=== PATIENT | female | born 1965 | race Caucasian/White ===

== ENCOUNTER → 2018-03-20 | Day surgery (SDC) | payer OTHER ==
[~2018-03-20] MED LIST: LIDOCAINE 1% INJ-PF (10 MG/ML) 30 ML SDV ONE
--- NOTE | 2018-03-21 16:57 | WOMENS IMAGING REPORT ---
EXAM DESCRIPTION: U/S BREAST BX; LEFT DIG DX MAMMO NO CHG; U/S BREAST BX EACH ADDT'L COMPLETED DATE/TIME: 03/20/2018 2:44 pm; 03/20/2018 2:52 pm REASON FOR STUDY: U/S GUIDED CNBX/N63.0; N63.0 S/P US BX LEFT BREAST FOR CLIP PLACEMENT; N63.0 TWO N ODULES LEFT BREAST N63.0 UNSPECIFIED LUMP IN UNSPECIFIED BREAST COMPARISON: None. TECHNIQUE: The procedure was discussed with the patient and the patient agreed to proceed. THERE ARE TWO NODULES OF CONCERN AT THE 1 TO 2 O'CLOCK POSITION, A 9 X 7.5 MM NODULE SLIGHTLY MORE ME DIAL, A 7 X 7 MM SLIGHTLY MORE LATERAL. BOTH OF THESE NODULES WERE SAMPLED TODAY. Left breast 1 to 2 o'clock position 9 x 7.5 mm nodule with V clip The patient was scanned and the area of interest in the 1 to 2 o'clock position 10 cm from the nippl e of the left breast was localized. This correlates with the area of concern on prior imaging studie s. This area was targeted for ultrasound-guided core biopsy. After sterile skin prep and 1.5 mL local lidocaine 1% for skin and deep tissue anesthesia, a 14 gauge coaxial core biopsy needle was used to obtain several cores of tissue from the lesion. Under ultras ound guidance, a V clip was placed in the areas sampled. There were no immediate post-procedure comp lications. Left breast 1 to 2 o'clock position 7 x 7 mm nodule with ribbon clip The patient was scanned and the area of interest in the 1 to 2 o'clock position 10 cm from the nipple of the left breast was localized. This correlates with the area of concern on prior imaging studies . This area was targeted for ultrasound-guided core biopsy. After sterile skin prep and 1.5 mL local lidocaine 1% for skin and deep tissue anesthesia, a 14 gauge coaxial core biopsy needle was used to obtain several cores of tissue from the lesion. Under ultras ound guidance, a ribbon clip was placed in the areas sampled. There were no immediate post-procedure complications. MAMMOGRAM: Post-procedure two view mammogram was acquired in the digital mammogram suite. The clips w ere in the expected location. No significant hematoma. Pathology yields a diagnosis of invasive ductal carcinoma in both locations Pathology is concordant. LIMITATIONS: None. FINDINGS: Ultrasound guided breast biopsy as described above. POST PROCEDURE MAMMOGRAMS FOR MARKER PLACEMENT: Yes IMPRESSION: ULTRASOUND-GUIDED CORE BIOPSY OF THE LEFT BREAST YIELDS A DIAGNOSIS OF INVASIVE DUCTAL C ARCINOMA AT BOTH NODULES AT THE 1 TO 2 O'CLOCK POSITION. BI-RADS 6 Known biopsy-proven malignancy. Appropriate action should be taken. COMMENT: COMMUNICATION: REPORT CALLED TO DR. FERNANDA GOMEZ'S NURSE, 1000 hours 03/21/2018. Results o f the biopsy were also discussed with the patient directly, 1000 hours 03/21/2018. The patient unders tands this is a malignant diagnosis Patient medication list reviewed: Yes- Quality ID# [id number]:Eligible professional attests to documenting i n the medical record they obtained, updated, or reviewed the patient's current medications. TECHNICAL DOCUMENTATION: JOB ID: [id number] [employer]- All Rights Reserved Reading location - IP/workstation name: [email or web address]
== END ==
LOC: EDSTATUS → WI 12:49
PROVIDERS: ATTEND Surgery
DX: C50.912 Malignant neoplasm of unspecified site of left female breast (principal); Z17.0 Estrogen receptor positive status [ER+]
CPT/HCPCS: 88305 ×2; 88342; 19083; 19084; J3490

== ENCOUNTER → 2018-03-28 | Outpatient (CLI) | payer OTHER ==
[2018-03-28 08:24] LABS: ABSOLUTE EOSINOPHILS # (AUTO) 0.2 10^3/uL (0.0-0.6); ABSOLUTE LYMPHOCYTES (AUTO) 1.1 10^3/uL (0.5-4.7); ABSOLUTE MONOCYTES (AUTO) 0.4 10^3/uL (0.1-1.4); ABSOLUTE NEUT (AUTO) 4.1 10^3/uL (1.7-8.2); BASOPHILS % (AUTO) 0.7 % (0-2); EOSINOPHILS % (AUTO) 3.1 % (0-6); HEMATOCRIT 42.4 % (36.0-47.0); HEMOGLOBIN 14.5 g/dL (12.0-15.5); LYMPHOCYTES % (AUTO) 19.2 % (13-45); MEAN CORPUSCULAR HEMOGLOBIN 29.1 pg (27.0-33.4); MEAN CORPUSCULAR HGB CONC 34.3 g/dL (32.0-36.0); MEAN CORPUSCULAR VOLUME 85 fl (80-97); MONOCYTES % (AUTO) 6.3 % (3-13); PLATELET COUNT 326 10^3/uL (150-450); RED BLOOD COUNT 4.99 10^6/uL (3.72-5.28); RED CELL DISTRIBUTION WIDTH 12.8 % (11.5-14.0); SEGMENTED NEUTROPHILS % (AUTO) 70.7 % (42-78); TOTAL CELLS COUNTED % (AUTO) 100 %; WHITE BLOOD COUNT 5.8 10^3/uL (4.0-10.5)
--- NOTE | 2018-03-28 08:36 | RADIOLOGY REPORT (SQ) ---
EXAM DESCRIPTION: CHEST PA/LATERAL COMPLETED DATE/TIME: 03/28/2018 7:52 am REASON FOR STUDY: MALIGNANT NEOPLASM OF UNSPECIFIED SITE OF LEFT FEMALE BREAST COMPARISON: None. EXAM PARAMETERS: NUMBER OF VIEWS: two views TECHNIQUE: Digital Frontal and Lateral radiographic views of the chest acquired. RADIATION DOSE: NA LIMITATIONS: none FINDINGS: LUNGS AND PLEURA: No opacities, masses or pneumothorax. No pleural effusion. MEDIASTINUM AND HILAR STRUCTURES: No masses or contour abnormalities. HEART AND VASCULAR STRUCTURES: Heart normal size. No evidence for failure. BONES: No acute findings. HARDWARE: None in the chest. OTHER: No other significant finding. IMPRESSION: NO SIGNIFICANT RADIOGRAPHIC FINDING IN THE CHEST. TECHNICAL DOCUMENTATION: JOB ID: [id number] [employer]- All Rights Reserved Reading location - IP/workstation name: [email or web address]
[2018-03-28 08:46] LABS: ALANINE AMINOTRANSFERASE 28 U/L (9-52); ALBUMIN 4.5 g/dL (3.5-5.0); ALKALINE PHOSPHATASE 56 U/L (38-126); ANION GAP 13 (5-19); ASPARTATE AMINO TRANSFERASE 25 U/L (14-36); BILIRUBIN,DIRECT 0.3 mg/dL (0.0-0.4); BILIRUBIN,TOTAL 0.5 mg/dL (0.2-1.3); BLOOD UREA NITROGEN 17 mg/dL (7-20); CALCIUM 9.7 mg/dL (8.4-10.2); CARBON DIOXIDE 27 mmol/L (22-30); CHLORIDE 106 mmol/L (98-107); GLUCOSE 98 mg/dL (75-110); POTASSIUM 4.2 mmol/L (3.6-5.0); SODIUM 145.5 mmol/L (137-145); TOTAL PROTEIN 7.9 g/dL (6.3-8.2)
== END ==
LOC: OD 07:28
PROVIDERS: ATTEND Surgery
DX: C50.912 Malignant neoplasm of unspecified site of left female breast (principal)
CPT/HCPCS: 36415; 71046; 80053; 85025

== ENCOUNTER 2018-05-11 08:50 | Day surgery (SDC) | payer OTHER ==
[2018-05-04 10:15] LABS: HEMATOCRIT 40.9 % (36.0-47.0); HEMOGLOBIN 14.1 g/dL (12.0-15.5); MEAN CORPUSCULAR HEMOGLOBIN 29.5 pg (27.0-33.4); MEAN CORPUSCULAR HGB CONC 34.6 g/dL (32.0-36.0); MEAN CORPUSCULAR VOLUME 85 fl (80-97); PLATELET COUNT 328 10^3/uL (150-450); RED CELL DISTRIBUTION WIDTH 13.6 % (11.5-14.0); WHITE BLOOD COUNT 6.6 10^3/uL (4.0-10.5)
[2018-05-04 10:27] LABS: ALANINE AMINOTRANSFERASE 46 U/L (9-52); ALBUMIN 4.6 g/dL (3.5-5.0); ALKALINE PHOSPHATASE 66 U/L (38-126); ANION GAP 14 (5-19); ASPARTATE AMINO TRANSFERASE 37 U/L (14-36); BILIRUBIN,DIRECT 0.2 mg/dL (0.0-0.4); BILIRUBIN,TOTAL 0.7 mg/dL (0.2-1.3); BLOOD UREA NITROGEN 19 mg/dL (7-20); CALCIUM 10.3 mg/dL (8.4-10.2); CARBON DIOXIDE 24 mmol/L (22-30); CHLORIDE 105 mmol/L (98-107); GLUCOSE 100 mg/dL (75-110); POTASSIUM 4.4 mmol/L (3.6-5.0); SODIUM 142.9 mmol/L (137-145); TOTAL PROTEIN 7.9 g/dL (6.3-8.2)
--- NOTE | 2018-05-08 13:21 | EKG REPORT ---
SEVERITY:- NORMAL ECG - SINUS RHYTHM : Confirmed by: Tico Harrell MD 08-May-2018 13:20:04
[~2018-05-11 08:50] MED LIST changes: +DEXAMETHASONE SOD PHOSPHATE INJ 4 MG/1 ML VIAL ONE; +LACTATED RINGERS 1000 ML IV PRN; +LIDOCAINE 0.5% INJ-PF (5 MG/ML) 50 ML SDV SUBCUT PRN; -LIDOCAINE 1% INJ-PF (10 MG/ML) 30 ML SDV ONE; +LIDOCAINE 4% TRANSPARENT DRESSING 5 GM KIT TP PRN; +ONDANSETRON HCL INJ/PF 4 MG/2 ML SDV ONE
[2018-05-11] MEDS ORDERED: LIDOCAINE 2% INJ (20 MG/ML) 20 ML MDV ONE (10:44)
[2018-05-11] MEDS ORDERED: MIDAZOLAM 2 MG/2 ML INJ ONE ×2 (11:53→13:58)
[2018-05-11] MEDS ORDERED: BUPIVACAINE HCL 0.5 % INJ/PF 30 ML SDV ONE (12:09)
[2018-05-11] MEDS ORDERED: METHYLENE BLUE 50 MG/10 ML AMPULE ONE (12:10)
[2018-05-11] MEDS ORDERED: FENTANYL CITRATE INJ/PF 100 MCG/2 ML AMPUL ONE ×2 (13:58→16:52)
[2018-05-11] MEDS ORDERED: PROPOFOL INJ 200 MG/20 ML VIAL IV ONE (13:59)
[2018-05-11] MEDS ORDERED: CEFAZOLIN 2 GM/D5W RTU 2 GM/50 ML RTUPB IV ONE (14:26)
--- NOTE | 2018-05-11 15:06 | WOMENS IMAGING REPORT ---
EXAM DESCRIPTION: NM LYMPHATICS/LYMPH GLANDS; WIRE LOC MAMMO COMPLETED DATE/TIME: 05/11/2018 11:16 am; 05/11/2018 1:28 pm REASON FOR STUDY: LT BREAST CA; LEFT BREAST WIRE LOC C50.912 MALIGNANT NEOPLASM OF UNSPECIFIED SITE OF LEFT FEMAL C50.911 MALIGNANT NEOPLASM OF UNSP SITE OF RIGHT FEMALE ROB COMPARISON: Ultrasound-guided breast biopsy 03/20/2018 RADIONUCLIDE AND DOSE: 569 microcuries TC-99m tilmanocept - Lymphoseek. The route of agent administration: Subcutaneous in the skin. TECHNIQUE: The skin of the left breast was prepped in sterile fashion. The radiopharmaceutical was administered in equally divided doses in the periareolar breast. LIMITATIONS: None. FINDINGS: Images demonstrate activity at the injection site. There is migration toward the axilla. IMPRESSION: ADMINISTRATION OF RADIOPHARMACEUTICAL FOR SENTINEL LYMPH NODE EVALUATION. TECHNICAL DOCUMENTATION: JOB ID: [id number] [employer]- All Rights Reserved Reading location - IP/workstation name: [email or web address]
[2018-05-11] MEDS ORDERED: HYDROMORPHONE HCL INJ/PF 2 MG/ML AMPULE ONE (15:14)
[2018-05-11] MEDS ORDERED: FENTANYL CITRATE INJ/PF 100 MCG/2 ML AMPUL IV PRN ×2 (16:11)
[2018-05-11] MEDS ORDERED: PROMETHAZINE HCL INJ 25 MG/1 ML VIAL IV PRN (16:11)
[2018-05-11] MEDS ORDERED: DIPHENHYDRAMINE HCL 50 MG/ML VIAL IV PRN (16:11)
[2018-05-11] MEDS: FENTANYL CITRATE INJ/PF 100 MCG/2 ML AMPUL IV PRN ×2 (16:55→17:05)
[2018-05-11] MEDS ORDERED: ACETAMINOPHEN 1,000 MG/100 ML RTUPB IV ONE (17:06)
[2018-05-11] MEDS ORDERED: KETOROLAC TROMETHAMINE INJ/PF 30 MG/1 ML SDV ONE (17:06)
[2018-05-11] MEDS ORDERED: HYDROCODONE/ACETAMINOPHEN 5-325 MG TABLET ONE (17:51)
[2018-05-11] MEDS ORDERED: ONDANSETRON 4 MG TAB.RAPDIS ONE (18:25)
[2018-05-11] MEDS ORDERED: ONDANSETRON 4 MG TAB.RAPDIS PO ONE (18:45)
[2018-05-11 18:57] VITALS: BP 143/85
--- NOTE | 2018-05-16 08:22 | Operative Report ---
Nonrecallable Operative Report DATE OF SURGERY: 05/11/18 PREOPERATIVE DIAGNOSIS: Left breast cancer POSTOPERATIVE DIAGNOSIS: Same as above OPERATION: 1. Left breast needle localization lumpectomy. 2. Left sentinel lymph node biopsy. SURGEON: EDGAR MICHAEL ANESTHESIA: GA TISSUE REMOVED OR ALTERED: 1. [place] lymph node #1. 2. [place] lymph node #2. 3. Extra axillary tissue. 4. Left breast lumpectomy COMPLICATIONS: None apparent ESTIMATED BLOOD LOSS: Minimal PROCEDURE: Drains/implants: None. Procedure in detail: After informed consent was obtained, the patient was laid in the supine position in the operating room. The area of the left axilla and breast were prepped and draped in normal sterile fashion. The gamma probe was used to paula the area of diffusion on the left breast. An obvious hot spot was then located in the left axilla. An incision was created diagonally in the axillary crease. Dissection was carried through the subcutaneous tissue using sharp and blunt means. A hot spot in the left axilla was identified and removed from the surrounding tissue. This was performed using hemoclips and Metzenbaum scissors. A 10 second ex vivo count was then performed on the sentinel lymph node #1. The count measured 47,801. Another hot spot was then identified inside the axilla. [place] lymph node #2 was identified and removed from the patient. An ex vivo count was performed and measured 13,175. No other hot spots could be identified. A background count of 478 was obtained. This confirmed that all sentinel lymph nodes were removed from the patient. The wound was irrigated, and the subcutaneous tissues were closed. This was performed using 3-0 Vicryl suture in simple interrupted fashion. The overlying skin was closed using 4-0 Vicryl Rapide suture in subcuticular fashion. A dressing was placed, and this portion of the procedure was concluded. Attention was then turned to the left breast. The left breast was inspected. There were 2 separate wires at approximately the 3 o'clock position on the left breast. There was an anterior and posterior wire that marked the extent of the lesion. An incision was created in the left lateral breast in radial fashion. A generous lumpectomy was then performed using Bovie electrocautery. This was done to encompass all of the tissue surrounding the localization wires. Once the lumpectomy was removed, it was marked with sutures. 2 short stitches are superior, 2 long stitches are lateral , one long/one short stitch is anterior. The specimen was examined with mammography. Both wires and clips were within the specimen. Subcutaneous tissue was then closed using 3-0 Vicryl suture in simple interrupted fashion. The overlying skin was closed using 4-0 Vicryl Rapide suture in subcuticular fashion. Dressings were placed, and the procedure was concluded. All sponge, instrument, and needle counts were correct 2. Condition: Stable.
--- NOTE | 2018-05-16 08:23 | Discharge Summary ---
Discharge Summary (SDC) - Discharge Final Diagnosis: left breast cancer Date of Surgery: 05/11/18 Discharge Date: 05/11/18 Condition: Good Forms: ASU Anesthesia D/C Instruction, Discharge POC-Surgical Service Referrals: VANESSA CASPER MD [Primary Care Provider] - EDGAR MICHAEL MD [ACTIVE STAFF] - (Call for appointment to be seen in 7-10 days.) Discharge Diet: As Tolerated Respiratory Treatments at Home: Deep Breathing/Coughing Discharge Activity: Balance Activity w/Rest, No Lifting/Push/Pulling Home Care Assistance: Provided by Family Report the Following to Your Physician Immediately: Shortness of Breath, Nausea , Increase in Pain, Fever over 101 Degrees, Unusual Bleeding, Redness, Swelling , Warmth, Increased Soreness, Drainage-Yellow, IV Site Infection Signs
--- NOTE | 2018-05-16 09:54 | RADIOLOGY REPORT (SQ) ---
EXAM DESCRIPTION: BREAST SPECIMEN COMPLETED DATE/TIME: 05/11/2018 4:13 pm REASON FOR STUDY: LEFT BREAST LUMPECTOMY C50.912 MALIGNANT NEOPLASM OF UNSPECIFIED SITE OF LEFT FEM AL C50.911 MALIGNANT NEOPLASM OF UNSP SITE OF RIGHT FEMALE ROB COMPARISON: Mammograms and ultrasound 03/20/2018 TECHNIQUE: Specimen radiograph from breast procedure performed in the operating room. LIMITATIONS: None. FINDINGS: Specimen radiograph from breast procedure performed in the operating room. The 2 biopsy c lips placed under ultrasound 03/20/2018 are included in the specimen. Please see procedure note for details and final pathology. IMPRESSION: Specimen radiograph. TECHNICAL DOCUMENTATION: JOB ID: [id number] Reading location - IP/workstation name: [email or web address]
== END 2018-05-11 18:55 | disposition home or self-care (01) ==
LOC: OROUT 08:50
PROVIDERS: ATTEND Surgery
DX: C50.812 Malignant neoplasm of overlapping sites of left female breast (principal); Z88.2 Allergy status to sulfonamides; Z79.899 Other long term (current) drug therapy
CPT/HCPCS: 93005; 36415; 85027; 81025; 80053; 88342 ×2; 88307 ×2; 78195; 93010; 19281; 76098; 19307; A9520; J2250; J3490 ×3; J1100; S0119; J3010; J1885; J1170; J2405; J2704; J0690; J0131; Q9968; 1610

== ENCOUNTER → 2018-06-26 | Outpatient (CLI) | payer OTHER ==
[2018-06-26 13:54] LABS: ABSOLUTE EOSINOPHILS # (AUTO) 0.1 10^3/uL (0.0-0.6); ABSOLUTE LYMPHOCYTES (AUTO) 1.2 10^3/uL (0.5-4.7); ABSOLUTE MONOCYTES (AUTO) 0.4 10^3/uL (0.1-1.4); ABSOLUTE NEUT (AUTO) 5.7 10^3/uL (1.7-8.2); BASOPHILS % (AUTO) 0.5 % (0-2); EOSINOPHILS % (AUTO) 1.1 % (0-6); HEMATOCRIT 38.3 % (36.0-47.0); HEMOGLOBIN 13.1 g/dL (12.0-15.5); MEAN CORPUSCULAR HEMOGLOBIN 29.1 pg (27.0-33.4); MEAN CORPUSCULAR HGB CONC 34.2 g/dL (32.0-36.0); MEAN CORPUSCULAR VOLUME 85 fl (80-97); MONOCYTES % (AUTO) 5.3 % (3-13); PLATELET COUNT 297 10^3/uL (150-450); RED CELL DISTRIBUTION WIDTH 13.6 % (11.5-14.0); SEGMENTED NEUTROPHILS % (AUTO) 77.1 % (42-78); TOTAL CELLS COUNTED % (AUTO) 100 %; WHITE BLOOD COUNT 7.4 10^3/uL (4.0-10.5)
[2018-06-26 14:17] LABS: ALANINE AMINOTRANSFERASE 53 U/L (9-52); ALBUMIN 4.2 g/dL (3.5-5.0); ALKALINE PHOSPHATASE 61 U/L (38-126); ASPARTATE AMINO TRANSFERASE 48 U/L (14-36); BILIRUBIN,DIRECT 0.3 mg/dL (0.0-0.4); BILIRUBIN,TOTAL 0.5 mg/dL (0.2-1.3); TOTAL PROTEIN 7.2 g/dL (6.3-8.2)
== END ==
LOC: OD 12:48
PROVIDERS: ATTEND Radiology Radiation Oncology
DX: C50.212 Malignant neoplasm of upper-inner quadrant of left female breast (principal); Z17.0 Estrogen receptor positive status [ER+]; Z79.899 Other long term (current) drug therapy
CPT/HCPCS: 36415; 80076; 84703; 85025

== ENCOUNTER → 2018-11-22 | Outpatient (CLI) | payer OTHER | LOC: WI 08:40 | PROVIDERS: ATTEND Surgery | DX: Z85.3 Personal history of malignant neoplasm of breast (principal) | CPT/HCPCS: 77066 ==

== ENCOUNTER 2018-12-25 13:24 | Emergency (ER) | payer OTHER ==
[2018-12-25] MEDS ORDERED: MECLIZINE HCL 25 MG TABLET PO ONE (14:53)
[2018-12-25] MEDS ORDERED: NORMAL SALINE 1000 ML 1,000 ML IV ONE (14:53)
[2018-12-25] MEDS ORDERED: ONDANSETRON HCL INJ/PF 4 MG/2 ML SDV IV ONE (14:53)
--- NOTE | 2018-12-25 15:00 | ER Document Report ---
ED Medical Screen (RME) - General Chief Complaint: Nausea/Vomiting Stated Complaint: NAUSEA Time Seen by Provider: 12/25/18 14:40 Primary Care Provider: EDGAR MICHAEL MD [Primary Care Provider] - Follow up as needed TRAVEL OUTSIDE OF THE [place] IN LAST 30 DAYS: No - HPI Patient complains to provider of: dizziness Notes: 12/25/18 14:57 Patient is here with complaints of right-sided facial weakness and extreme vertigo. The patient had shingles last month on the right side side of her face and was treated. 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 She denies any numbness, tingling, weakness to her arms or her legs. She states that she cannot hear out of her right ear and she has extreme vertigo. She states that the spinning sensation is constant, it is not related to movement or position. She has had significant nausea, vomiting due to this and has lost several pounds in the last 4 weeks. She states that she has not had any imaging done of her brain. She denies any chest pain or shortness of breath. No abdominal pain. No fevers. EXAM: Patient with right-sided facial paralysis. No rash. Equal push and pull of her upper and lower extremities bilaterally. No pronator drift. Lungs clear and equal throughout. PLAN: Labs have been ordered. Have ordered an MRI of the brain to evaluate for potential posterior brain abnormality due to the fact that the patient has constant vertigo. Remainder of her neuro exam is unremarkable. An initial examination was made on the patient as part of the triage process, and it was determined a more comprehensive evaluation was necessary. Initial labs were ordered and patient was transferred to another provider in the ED who assumed care and finished evaluation and plan. - Related Data Allergies/Adverse Reactions: Sulfa (Sulfonamide Antibiotics) Allergy (Intermediate, Verified 12/25/18 13:30) Hives Past Medical History - Social History Frequency of alcohol use: None Drug Abuse: None - Past Medical History Cardiac Medical History: Denies: Hx Coronary Artery Disease, Hx Heart Attack, Hx Hypertension Pulmonary Medical History: Denies: Hx Asthma, Hx Bronchitis, Hx COPD, Hx Pneumonia Neurological Medical History: Denies: Hx Cerebrovascular Accident, Hx Seizures Renal/ Medical History: Denies: Hx Peritoneal Dialysis Musculoskeltal Medical History: Denies Hx Arthritis - Immunizations Hx Diphtheria, Pertussis, Tetanus Vaccination: Yes History of Influenza Vaccine for 06/2017 - 11/2017 Season: Yes Influenza Administration Date for 06/2017 - 11/2017 Season: 06/12/17 Physical Exam - Vital signs Vitals: Temp Pulse Resp BP Pulse Ox 97.8 F 117 H 15 145/104 H 100 12/25/18 13:44 12/25/18 13:44 12/25/18 13:44 12/25/18 13:44 12/25/18 13:44 Course - Vital Signs Vital signs: Temp Pulse Resp BP Pulse Ox 97.8 F 117 H 15 145/104 H 100 12/25/18 13:44 12/25/18 13:44 12/25/18 13:44 12/25/18 13:44 12/25/18 13:44 Doctor's Discharge - Discharge Referrals: EDGAR MICHAEL MD [Primary Care Provider] - Follow up as needed
[2018-12-25 16:14] LABS: ABSOLUTE LYMPHOCYTES (AUTO) 0.9 10^3/uL (0.5-4.7); ABSOLUTE MONOCYTES (AUTO) 0.7 10^3/uL (0.1-1.4); ABSOLUTE NEUT (AUTO) 12.6 10^3/uL (1.7-8.2); BASOPHILS % (AUTO) 0.3 % (0-2); EOSINOPHILS % (AUTO) 0.1 % (0-6); HEMATOCRIT 48.5 % (36.0-47.0); HEMOGLOBIN 16.4 g/dL (12.0-15.5); MEAN CORPUSCULAR HEMOGLOBIN 28.9 pg (27.0-33.4); MEAN CORPUSCULAR HGB CONC 33.8 g/dL (32.0-36.0); MEAN CORPUSCULAR VOLUME 85 fl (80-97); MONOCYTES % (AUTO) 4.9 % (3-13); PLATELET COUNT 332 10^3/uL (150-450); RED BLOOD COUNT 5.67 10^6/uL (3.72-5.28); RED CELL DISTRIBUTION WIDTH 14.7 % (11.5-14.0); SEGMENTED NEUTROPHILS % (AUTO) 88.7 % (42-78); TOTAL CELLS COUNTED % (AUTO) 100 %; WHITE BLOOD COUNT 14.2 10^3/uL (4.0-10.5)
[2018-12-25 16:18] LABS: INTERNATIONAL RATION (INR) 1.02; PARTIAL THROMBOPLASTIN TIME 24.9 SEC (23.5-35.8); PROTHROMBIN TIME 13.9 SEC (11.4-15.4)
[2018-12-25 16:24] LABS: ALANINE AMINOTRANSFERASE 101 U/L (9-52); ALBUMIN 4.6 g/dL (3.5-5.0); ALKALINE PHOSPHATASE 65 U/L (38-126); ANION GAP 13 (5-19); ASPARTATE AMINO TRANSFERASE 46 U/L (14-36); BILIRUBIN,DIRECT 0.5 mg/dL (0.0-0.4); BILIRUBIN,TOTAL 0.9 mg/dL (0.2-1.3); BLOOD UREA NITROGEN 37 mg/dL (7-20); CALCIUM 10.4 mg/dL (8.4-10.2); CARBON DIOXIDE 28 mmol/L (22-30); CHLORIDE 99 mmol/L (98-107); GLUCOSE 147 mg/dL (75-110); POTASSIUM 4.1 mmol/L (3.6-5.0); SODIUM 139.7 mmol/L (137-145); TOTAL PROTEIN 8.1 g/dL (6.3-8.2)
--- NOTE | 2018-12-25 18:39 | RADIOLOGY REPORT (SQ) ---
EXAM DESCRIPTION: MRI HEAD WITHOUT COMPLETED DATE/TIME: 12/25/2018 6:24 pm REASON FOR STUDY: constant vertigo, right quezada's palsy COMPARISON: None. TECHNIQUE: Multiplanar imaging includes non-contrasted T1, T2, FLAIR, and diffusion with ADC map seq uences. Images stored on PACS. LIMITATIONS: None. FINDINGS: ANATOMY: No anomalies. Normal vascular flow voids. Pituitary fossa normal. CSF SPACES: Normal in size and contour. No hemorrhage. CEREBRUM: Sulci and gyri normal in size and contour. Normal white matter signal on FLAIR imaging. No evidence of hemorrhage, mass, or extraaxial fluid collection. POSTERIOR FOSSA: No signal alteration. No hemorrhage. No edema, masses or mass effect. Internal katy tory canals, cerebello-pontine angles, mastoids normal. DIFFUSION IMAGING: Negative for acute or sub-acute infarction. ORBITS: No masses. Globes normal. PARANASAL SINUSES: No fluid levels. Mucosa normal. OTHER: No other significant finding. IMPRESSION: NORMAL MRI OF THE BRAIN WITHOUT INTRAVENOUS GADOLINIUM CONTRAST. EVIDENCE OF ACUTE STROKE: NO. TECHNICAL DOCUMENTATION: JOB ID: [id number] [employer]- All Rights Reserved Reading location - IP/workstation name: [email or web address]
[2018-12-25] MEDS ORDERED: METOCLOPRAMIDE HCL INJ/PF 10 MG/2 ML SDV IV ONE (19:17)
--- NOTE | 2018-12-25 19:23 | ER Document Report ---
ED General - General Chief Complaint: Nausea/Vomiting Stated Complaint: NAUSEA Time Seen by Provider: 12/25/18 14:40 Primary Care Provider: EDGAR MICHAEL MD [Primary Care Provider] - Follow up as needed Notes: Patient is a 53-year-old female with a primary history of form of breast cancer, [place] Haider syndrome with a right-sided facial paralysis, presenting with intermittent vertigo over the last 4 weeks. The patient states that the vertigo has not been improving with what prompted a visit to the emergency department today. States that it is relatively constant, goes on throughout most of the day but does have waves of worsening. No obvious triggering or worsening factor. She has not trying Valium 10 mg every 8 hours which she states she feels like makes everything worse. She has had also associated severe nausea and has weight loss as a result of this. She has been following with her primary care doctor regarding today's issues. She denies any focal weakness or numbness beyond her right-sided facial paralysis. No headache. Nothing is otherwise new or different regarding her symptoms today that prompted a visit to the emergency department. TRAVEL OUTSIDE OF THE [place] IN LAST 30 DAYS: No - Related Data Allergies/Adverse Reactions: Sulfa (Sulfonamide Antibiotics) Allergy (Intermediate, Verified 12/25/18 13:30) Hives Past Medical History - General Information source: Patient - Social History Smoking Status: Never Smoker Frequency of alcohol use: None Drug Abuse: None Lives with: Spouse/Significant other Family History: Reviewed & Not Pertinent Patient has suicidal ideation: No Patient has homicidal ideation: No - Past Medical History Cardiac Medical History: Denies: Hx Coronary Artery Disease, Hx Heart Attack, Hx Hypertension Pulmonary Medical History: Denies: Hx Asthma, Hx Bronchitis, Hx COPD, Hx Pneumonia Neurological Medical History: Denies: Hx Cerebrovascular Accident, Hx Seizures Renal/ Medical History: Denies: Hx Peritoneal Dialysis Musculoskeletal Medical History: Denies Hx Arthritis - Immunizations Hx Diphtheria, Pertussis, Tetanus Vaccination: Yes Review of Systems - Review of Systems Notes: Constitutional: Negative for fever. HENT: Negative for sore throat. Eyes: Negative for visual changes. Cardiovascular: Negative for chest pain. Respiratory: Negative for shortness of breath. Gastrointestinal: Negative for abdominal pain, positive for nausea Genitourinary: Negative for dysuria. Musculoskeletal: Negative for back pain. Skin: Negative for rash. Neurological: Positive for facial nerve paralysis on the right, dizziness 10 point ROS negative except as marked above and in HPI. Physical Exam - Vital signs Vitals: Temp Pulse Resp BP Pulse Ox 97.8 F 117 H 15 145/104 H 100 12/25/18 13:44 12/25/18 13:44 12/25/18 13:44 12/25/18 13:44 12/25/18 13:44 Interpretation: Tachycardic - Result time of my assessment Notes: PHYSICAL EXAMINATION: GENERAL: Appears moderately uncomfortable but in no acute distress HEAD: Atraumatic, normocephalic. EYES: Pupils equal round and reactive to light, extraocular movements intact, sclera anicteric, conjunctiva are normal. ENT: nares patent, oropharynx clear without exudates. Moist mucous membranes. NECK: Normal range of motion, supple without lymphadenopathy LUNGS: Breath sounds clear to auscultation bilaterally and equal. No wheezes rales or rhonchi. HEART: Regular rate and rhythm without murmurs ABDOMEN: Soft, nontender, normoactive bowel sounds. No guarding, no rebound. No masses appreciated. EXTREMITIES: Normal range of motion, no pitting or edema. No cyanosis. NEUROLOGICAL: Dense right-sided facial nerve paralysis. Tongue protrudes midline. Extraocular motions intact. Pupils are 2 mm and equally reactive. Normal speech, normal gait. 5 out of 5 strength in both the distal and proximal upper and lower extremities bilaterally. Sensation is grossly intact throughou t. Finger to nose testing normal. Pronator drift normal. PSYCH: Normal mood, normal affect. SKIN: Warm, Dry, normal turgor, no rashes or lesions noted. Course - Re-evaluation Re-evalutation: 12/25/18 19:23 Patient presents with 4 weeks of intermittent severe vertigo after being diagnosed with [place] Haider. The patient has a ready received appropriate treatment including valacyclovir, steroids and has been trying 10 mg of Valium twice daily for vertigo but states that this sedates her heavily and makes things worse. Of note this would not be the correct dose for vertigo and I have encouraged her to take 2 mg every 6 as needed and also alternate with meclizine or try this in lieu of Valium. An MRI of her head was obtained in triage due to concerns of possible cerebellar involvement with which clinically seems very un likely. MRI is negative. The patient's symptomology is most consistent with a vestibular neuritis in the setting of a Kitty Haider syndrome. Her neurologic exam is otherwise unremarkable with the exception of a dense facial nerve paralysis on the right which is baseline at this point. She has no focal deficits. Cerebellar testing is normal. At this time will discharge with return precautions and follow-up recommendations. Verbal discharge instructions given a the bedside and opportunity for questions given. Medication warnings reviewed. Patient is in agreement with this plan and has verbalized understanding of return precautions and the need for primary care follow-up in the next 24-72 hours. 12/25/18 19:25 - Vital Signs Vital signs: Temp Pulse Resp BP Pulse Ox 97.8 F 117 H 15 145/104 H 100 12/25/18 13:44 12/25/18 13:44 12/25/18 13:44 12/25/18 13:44 12/25/18 13:44 - Laboratory Result Diagrams: 12/25/18 15:38 12/25/18 15:51 Laboratory results interpreted by me: 12/25/18 12/25/18 15:38 15:51 WBC 14.2 H RBC 5.67 H Hgb 16.4 H Hct 48.5 H RDW 14.7 H Seg Neutrophils % 88.7 H Lymphocytes % 6.0 L Absolute Neutrophils 12.6 H BUN 37 H Glucose 147 H Calcium 10.4 H Direct Bilirubin 0.5 H AST 46 H ALT 101 H - Diagnostic Test Radiology reviewed: Reports reviewed Discharge - Discharge Clinical Impression: Facial nerve paralysis, [place]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 Your MRI and labs are normal. You may take meclizine 25 mg every 6 hours as needed for dizziness. If this does not work take Valium 2 mg every 6 hours as needed. You may use Reglan 10 mg every 6 hours as needed for nausea or vomiting. You have to received appropriate treatment for your Kitty Haider syndrome and at this point, time is only thing that will hopefully result in resolution of all of your symptoms. Please continue to follow with your primary care doctor. A neurology referral would be indicated if your symptoms are failing to improve within the next several weeks. Return if you develop focal weakness, numbness, confusion, inability to walk, persistent vomiting or any other symptoms that are worrisome to you. Prescriptions: Diazepam [Valium 2 mg Tablet] 2 mg PO Q6HP PRN #15 tablet PRN Reason: Meclizine HCl [Antivert 25 mg Tablet] 25 mg PO TID PRN #21 tablet PRN Reason: Metoclopramide HCl [Reglan 10 mg Tablet] 1 - 2 tab PO ASDIR PRN #25 tablet PRN Reason: Referrals: EDGAR MICHAEL MD [Primary Care Provider] - Follow up as needed
--- NOTE | 2018-12-25 20:05 | EKG REPORT ---
SEVERITY:- NORMAL ECG - SINUS RHYTHM : Confirmed by: Italia Desir MD 25-Dec-2018 20:03:18
[2018-12-25 20:06] VITALS: BP 146/89
== END 2018-12-25 20:06 | disposition home or self-care (01) ==
LOC: ER 13:24
DX: B02.21 Postherpetic geniculate ganglionitis (principal); G51.0 Bell's palsy; H81.21 Vestibular neuronitis, right ear; R11.2 Nausea with vomiting, unspecified
CPT/HCPCS: 93005; 99284; 96361; 96374; 96375; 36415; 85025; 85610; 85730; 80053; 70551; 93010; J2765; J2405; J7030

== ENCOUNTER → 2019-01-05 | Outpatient (CLI) | payer OTHER ==
--- NOTE | 2019-01-08 08:47 | RADIOLOGY REPORT (SQ) ---
EXAM DESCRIPTION: MRI HEAD COMBO COMPLETED DATE/TIME: 01/05/2019 8:52 pm REASON FOR STUDY: H91.8X1 OTHER SPECIFIED HEARING LOSS, RIGHT EAR H91.8X1 OTHER SPECIFIED HEARING L OSS, RIGHT EAR COMPARISON: 12/25/2018 TECHNIQUE: Multiplanar imaging includes noncontrasted T1, T2, FLAIR, diffusion with ADC map and post gadolinium contrast T1 sequences. Additional thin section axial T2 weighted images, thin section axial and coronal T1 weighted images p re and postcontrast were obtained. Images stored on PACS. CONTRAST TYPE AND DOSE: 10 mL Dotarem. RENAL FUNCTION: Not indicated. ACR Type II contrast agent associated with few, if any, unconfounded cases of NSF LIMITATIONS: None. FINDINGS: ANATOMY: No anomalies. Normal vascular flow voids. Pituitary fossa normal. CSF SPACES: Normal in size and contour. No hemorrhage. CEREBRUM: Sulci and gyri normal in size and contour. Normal white matter signal on FLAIR imaging. No evidence of hemorrhage, mass, or extraaxial fluid collection. No abnormal enhancement post contrast. POSTERIOR FOSSA: There is abnormal contrast enhancement of the facial nerve throughout its course fr om the right cerebellopontine angle cistern through the geniculate ganglion, horizontal and vertical portions. There is also abnormal contrast enhancement along the vestibular nerve. On FLAIR images, there is abnormal increased intrinsic signal of the brainstem/ 4th ventricle in the area of the facia l nerve nucleus worrisome for encephalitis. 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 Facial nerve nucleus also positive on diffusion weighted images 5-7. DIFFUSION IMAGING: Facial nerve nucleus is positive on diffusion weighted images 5-7 ORBITS: No masses. Globes normal. PARANASAL SINUSES: No fluid levels. Mucosa normal. OTHER: Small amount of fluid in the right mastoid air cells. No middle ear effusion. 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 There is also edema with positive diffusion signal in the right facial nerve nucleus EVIDENCE OF ACUTE STROKE: Diffusion signal abnormality in the right 7th nerve nucleus COMMENT: Report discussed with Dr Acuña TECHNICAL DOCUMENTATION: JOB ID: [id number] [employer]- All Rights Reserved Reading location - IP/workstation name: [email or web address]
== END ==
LOC: RAD 18:43
PROVIDERS: ATTEND Otolaryngology
DX: H91.8X1 Other specified hearing loss, right ear (principal); B02.21 Postherpetic geniculate ganglionitis
CPT/HCPCS: 70553